=== PATIENT | female | born 1955 | race Caucasian/White ===

== ENCOUNTER 2021-11-24 09:35 | Emergency (ER) | payer MEDICARE, OTHER ==
[~2021-11-24] VITALS: Ht 160 cm; Wt 57.3 kg
[~2021-11-24 09:35] MED LIST: CLON-529 PO; GABA600T13 PO; LOSA25TA96 PO; NEBI20TA2 PO; PANT20TA2 PO
[2021-11-24 09:43] VITALS: BP 183/98
[2021-11-24] MEDS ORDERED: HYDROcodone/acetaminophen 10/325mg tab PO ONE (10:05)
[2021-11-24] MEDS ORDERED: morphine 4 MG/ML inj SYRINge IM ONE (10:05)
[2021-11-24] MEDS ORDERED: OXYC-150 PO ×3 (11:14→13:25)
== END 2021-11-24 11:47 | disposition home or self-care (01) ==
LOC: ER 09:35
DX: S42.212A Unspecified displaced fracture of surgical neck of left humerus, initial encounter for closed fracture (principal); G89.29 Other chronic pain; Z88.0 Allergy status to penicillin; Z88.6 Allergy status to analgesic agent; Z79.899 Other long term (current) drug therapy; W18.09XA Striking against other object with subsequent fall, initial encounter; Z91.81 History of falling; Y93.89 Activity, other specified; Y92.89 Other specified places as the place of occurrence of the external cause; Y99.8 Other external cause status
CPT/HCPCS: 29105; 73030; 73070; 96372; 99284; J2270